=== PATIENT | male | born 1960 | race Caucasian/White ===

== ENCOUNTER 2017-12-30 17:14 | Emergency (ER) | payer MEDICARE ==
[~2017-12-30] VITALS: Ht 188 cm; Wt 106.6 kg
--- NOTE | 2017-12-30 20:02 | Diagnostic Imaging Report ---
SHOULDER LEFT COMPLETE Comparison: None Clinical history: \S\fall, rule out dislocation/fracture Findings: Motion artifact. No acute fracture or dislocation. Impression: No acute bony abnormality Signed by: Dr Janeen Bridges MD on 12/30/2017 7:59 PM
[2017-12-30 20:56] VITALS: BP 142/96
== END 2017-12-30 21:33 | disposition home or self-care (01) ==
LOC: ER 17:14
DX: M25.512 Pain in left shoulder (principal); S40.012A Contusion of left shoulder, initial encounter; W01.0XXA Fall on same level from slipping, tripping and stumbling without subsequent striking against object, initial encounter; Y92.008 Other place in unspecified non-institutional (private) residence as the place of occurrence of the external cause
CPT/HCPCS: 99283

== ENCOUNTER → 2018-10-10 | Outpatient (CLI) | payer MEDICARE ==
[~2018-10-10] MED LIST: IOPAMIDOL 370 MG/ML 200 ML INFUS..BTL INJ ONE; SODIUM CHLORIDE 0.9% 250ML 250 ML ONE
--- NOTE | 2018-10-10 12:11 | Diagnostic Imaging Report ---
EXAMINATION: CT of the abdomen and pelvis with and without contrast. TECHNIQUE: Spiral CT images of the abdomen and pelvis were performed from the lung bases to the lesser trochanters before and after the intravenous administration of 100 cc Isovue-370. Imaging was performed in prone position per hematuria protocol. Coronal and sagittal reformatted images were obtained. COMPARISON: None. CLINICAL HISTORY:Asymptomatic hematuria DISCUSSION: ABDOMEN/PELVIS: LOWER THORAX:Mild subsegmental atelectasis in the dependent lingula and right middle lobe. Bandlike atelectasis in the right lower lobe and left lower lobe. Ectasia of the ascending thoracic aorta measuring 4.3 cm. HEPATOBILIARY: No focal hepatic lesions. No intra-or extrahepatic biliary ductal dilation. The gallbladder is normal. SPLEEN: No splenomegaly. PANCREAS: Coarse calcifications in the pancreatic tail. Also within the pancreatic tail there are multiple low-attenuation lesions. The 2 largest measure 2 cm and 1.6 cm in diameter as seen on series 6 image 81, and have internal attenuation less than 20 Hounsfield units. Additional more superior lesions are too small to further characterize. The proximal pancreas is unremarkable. ADRENALS: No adrenal nodules. KIDNEYS/URETERS: Precontrast images show no renal, ureteral, or bladder calculi. Excretory phase images show scattered subcentimeter hypoattenuating foci within both kidneys, too small to further characterize but likely to represent cysts. No filling defects are identified within the upper collecting systems, ureters, or partially distended urinary bladder. PELVIC ORGANS/BLADDER: Urinary bladder as above. Prostate and seminal vesicles appear normal. PERITONEUM/RETROPERITONEUM: No ascites or pneumoperitoneum. LYMPH NODES: No pelvic sidewall, retroperitoneal, or mesenteric lymphadenopathy. VESSELS: Evaluation is limited secondary to phase of scan. The abdominal aorta is nonaneurysmal. Portal vein, splenic vein, and central superior mesenteric vein are patent. GI TRACT: The large bowel shows no evidence of distention or wall thickening. There are diverticula scattered along the descending and sigmoid colon, without wall thickening or adjacent inflammatory change. The transverse colon is largely collapsed and poorly evaluated. The appendix is not definitively identified. No right lower quadrant inflammation. The distal stomach is collapsed. No small bowel dilatation to suggest obstruction. BONES AND SOFT TISSUE: No osseous destructive lesions. Degenerative disc changes and facet arthropathy of the lumbar spine. No soft tissue abnormalities. IMPRESSION: No acute intra-abdominal or pelvic CT abnormalities. No findings to explain the reported history of hematuria. Sequela of chronic pancreatitis involving the pancreatic tail. Multiple low-attenuation lesions may reflect inflammatory pseudocysts. However, the differential diagnosis includes side branch intraductal papillary mucinous neoplasia (IPMN). Further evaluation with MRCP is suggested. Ascending thoracic aortic ectasia (4.2 cm) Large bowel diverticulosis without findings of diverticulitis. Signed by: Dr. Tony Mccartney M.D. on 10/10/2018 12:07 PM
== END ==
LOC: CT 09:33
PROVIDERS: ATTEND Urology
DX: R31.21 Asymptomatic microscopic hematuria (principal)
CPT/HCPCS: 74178; J7050; Q9967

== ENCOUNTER → 2018-10-26 | Day surgery (SDC) | payer MEDICARE ==
[~2018-10-26] MED LIST changes: +B&O 60MG R/S 60 MG SUPP PR ONE; +CEFTRIAXONE SOD 1 GM/NS 50 ML 50 ML IV ONE; +CITALOPRAM HBR20 MG PO; +DEXAMETHASONE SOD PHOS INJ 4 MG/ML VIAL ONE; +DIVALPROEX SOD500 MG PO; +DOXAZOSIN MESYLA2 MG PO; +IOPAMIDOL 300MG/ML 50ML INFUS..BTL IV ONE; -IOPAMIDOL 370 MG/ML 200 ML INFUS..BTL INJ ONE; +LIDOCAINE HCL 2% LOCAL INJ 5 ML SDV VIAL INJ ONE; +ONDANSETRON HCL INJ 2MG/ML 2ML 2 MG/ML VIAL ONE; +PROPOFOL IV EMULSION 10 MG/ML 20 ML VIAL ONE; +RISPERIDONE1 MG; -SODIUM CHLORIDE 0.9% 250ML 250 ML ONE; +TRAZODONE HCL50 MG PO
[2018-10-26 11:25] VITALS: BP 134/70
--- OUTSIDE RECORDS SUMMARY | 2018-10-28 12:12 | XMS REPORT ---
Author [facility] Address Unknown Phone Unavailable Care Team Providers Care Travel Attendants Name Role Phone JADYN BELTRAN Unavailable Unavailable [employer] LISA Unavailable Unavailable Problems This patient has no known problems. Allergies, Adverse Reactions, Alerts This patient has no known allergies or adverse reactions. Medications This patient has no known medications. Encounters Start Date/Time End Date/Time Encounter Type Admission Type Attending [facility] Care Facility Care Department Encounter ID 2018-10-30 00:00:00 2018-10-30 00:00:00 Outpatient [facility] [id number] 2018-08-07 00:00:00 2018-08-07 00:00:00 Outpatient [facility] [id number] 2018-07-31 15:17:20 2018-07-31 15:17:20 Outpatient [facility] [id number] 2018-05-15 13:16:32 2018-05-15 13:16:32 Outpatient [facility] [id number] 2018-02-13 12:35:51 2018-02-13 12:35:51 Outpatient [facility] [id number] 2018-01-02 09:17:14 2018-01-02 09:17:14 Outpatient [facility] [id number] 2017-12-05 13:22:35 2017-12-05 13:22:35 Outpatient [facility] [id number] 2017-09-12 12:22:56 2017-09-12 12:22:56 Outpatient [facility] [id number] 2017-06-20 12:48:58 2017-06-20 12:48:58 Outpatient [facility] [id number] 2017-03-28 12:40:26 2017-03-28 12:40:26 Outpatient [facility] [id number] 2017-01-03 13:03:33 2017-01-03 13:03:33 Outpatient [facility] [id number] 2017-01-03 11:11:45 2017-01-03 11:11:45 Outpatient [facility] [id number] 2016-09-27 13:53:44 2016-09-27 13:53:44 Outpatient [facility] [id number] Results Test Description Test Time Test Comments Text Results Atomic Results Result Comments CT ABDOMEN/PELVIS WOW 2018-10-10 11:54:00 [facility] [address] [address] Patient Name: LUCAS POTTER MR #: [id number] : 1960 Age/Sex: 57/M Req #: [id number] Adm Physician: Ordered by: JADYN BELTRAN MD Report #: [id number] Location: CT Room/Bed: Procedure: [id number] CT/CT ABDOMEN/PELVIS WOW Exam Date: 10/10/18 Exam Time: 1037 REPORT STATUS: Signed EXAMINATION: CT of the abdomen and pelvis with and without contrast. TECHNIQUE: Spiral CT images of the abdomen and pelvis were performed from the lung bases to the lesser trochanters before and after the intravenous administration of 100 cc Isovue-370. Imaging was performed in prone position per hematuria protocol. Coronal and sagittal reformatted images were obtained. COMPARISON: None. CLINICAL HISTORY:Asymptomatic hematuria DISCUSSION: ABDOMEN/PELVIS: LOWER THORAX:Mild subsegmental atelectasis in the dependent lingula and right middle lobe. Bandlike atelectasis in the right lower lobe and left lower lobe. Ectasia of the ascending thoracic aorta measuring 4.3 cm. HEPATOBILIARY: No focal hepatic lesions. No intra-or extrahepatic biliary ductal dilation. The gallbladder is normal. SPLEEN: No splenomegaly. PANCREAS: Coarse calcifications in the pancreatic tail. Also within the pancreatic tail there are multiple low-attenuation lesions. The 2 largest measure 2 cm and 1.6 cm in diameter as seen on series 6 image 81, and have internal attenuation less than 20 Hounsfield units. Additional more superior lesions are too small to further characterize. The proximal pancreas is unremarkable. ADRENALS: No adrenal nodules. KIDNEYS/URETERS: Precontrast images show no renal, ureteral, or bladder calculi. Excretory phase images show scattered subcentimeter hypoattenuating foci within both kidneys, too small to further characterize but likely to represent cysts. No filling defects are identified within the upper collecting systems, ureters, or partially distended urinary bladder. PELVIC ORGANS/BLADDER: Urinary bladder as above. Prostate and seminal vesicles appear normal. PERITONEUM/RETROPERITONEUM: No ascites or pneumoperitoneum. LYMPH NODES: No pelvic sidewall, retroperitoneal, or mesenteric lymphadenopathy. VESSELS: Evaluation is limited secondary to phase of scan. The abdominal aorta is nonaneurysmal. Portal vein, splenic vein, and central superior mesenteric vein are patent. GI TRACT: The large bowel shows no evidence of distention or wall thickening. There are diverticula scattered along the descending and sigmoid colon, without wall thickening or adjacent inflammatory change. The transverse colon is largely collapsed and poorly evaluated. The appendix is not definitively identified. No right lower quadrant inflammation. The distal stomach is collapsed. No small bowel dilatation to suggest obstruction. BONES AND SOFT TISSUE: No osseous destructive lesions. Degenerative disc changes and facet arthropathy of the lumbar spine. No soft tissue abnormalities. IMPRESSION: No acute intra-abdominal or pelvic CT abnormalities. No findings to explain the reported history of hematuria. Sequela of chronic pancreatitis involving the pancreatic tail. Multiple low-attenuation lesions may reflect inflammatory pseudocysts. However, the differential diagnosis includes side branch intradu ctal papillary mucinous neoplasia (IPMN). Further evaluation with MRCP is suggested. Ascending thoracic aortic ectasia (4.2 cm) Large bowel diverticulosis without findings of diverticulitis. Signed by: Dr. Nathalia Chowdary M.D. on 10/10/2018 12:07 PM Dictated By: NATHALIA CHOWDARY MD [id number] Transcribed By: FRANCISCO on 10/10/18 1205 COPY TO: JADYN BELTRAN MD SHOULDER LEFT COMPLETE 2017-12-30 19:24:[address] [address] Patient Name: LUCAS POTTER MR #: [id number] : 1960 Age/Sex: 57/M Req #: [id number] [facility] Physician: Ordered by: BERNARDO EDEN NP Report #: [id number] Location: Room/Bed: Procedure: [id number] DX/SHOULDER LEFT COMPLETE Exam Date: 12/30/17 Exam Time: 1904 REPORT STATUS: Signed SHOULDER LEFT COMPLETE Comparison: None Clinical history: S fall, rule out dislocation/fracture Findings: Motion artifact. No acute fracture or dislocation. Impression: No acute bony abnormality Signed by: Dr Madi Bridges MD on 12/30/2017 7:59 PM Dictated By: MADI BRIDGES MD 57 Transcribed By: FRANCISCO on 12/30/171958 COPY TO: BERNARDO EDEN NP
--- NOTE | 2018-12-16 00:52 | Operative Report ---
DATE OF PROCEDURE: 10/26/2018 SURGEON: Lazarus Bryson MD PREOPERATIVE DIAGNOSIS: Microhematuria. POSTOPERATIVE DIAGNOSIS: Microhematuria. OPERATION PERFORMED: 1. Cystourethroscopy with bilateral ureteral catheterization and retrograde ureteropyelography. 2. Interpretation of retrograde ureteropyelography. 3. Supervision of fluoroscopy, no radiologist present. ANESTHESIA: General. COMPLICATIONS: None. CLINICAL SUMMARY: Tammie Frankel is a 58-year-old man with microhematuria. He was brought for the above procedures. He is aware of the risks of bleeding, infection, injury to adjacent structures, need for additional procedures, and elected to proceed. OPERATIVE PROCEDURE IN DETAIL: Informed consent was verified. Tammie Frankel was properly identified, taken to the operating room, placed on the cystoscopy table in supine position. Anesthesia was uneventfully begun. The patient was then carefully and gently repositioned in the dorsal lithotomy position with all pressure points well padded. His genitalia were prepared and draped in usual sterile fashion. A 22.5-Martiniquais cystoscope sheath with a visual obturator in place was atraumatically inserted into the patient's urethra and it was guided down the unremarkable distal urethra through a wide caliber, not clinically significant nonobstructing bulbar urethral disease. We entered through the patient's normal sphincteric region. We went through the prostate bed, which was significant for very early BPH. We entered the patient's bladder and the bladder was drained. Panendoscopy revealed no suspicious mucosal lesions, no tumors, no stones, and no diverticula. Mild trabeculations were noted. An 8-Martiniquais catheter was used to cannulate each ureter and retrograde ureteropyelograms were performed. Interpretation of retrograde ureteropyelography contrast was instilled in retrograde fashion bilaterally. There were no tumors, no stones, and no diverticula. Unobstructed drainage was observed bilaterally fluoroscopically. The patient's bladder was drained. Cystoscope was withdrawn. A belladonna and opium suppository were placed revealing a 25 g prostate, that is smooth, nonfluctuant without any nodules. The patient was then uneventfully reversed from anesthesia and taken to recovery room in stable condition. Exclusive postop instructions were given. We will follow the patient up in the office and of course on long-term basis. Lazarus MD JERROD Bryson/NIR /[id number] cc: Ramon Joiner MD
== END | disposition home or self-care (01) ==
LOC: OR 05:15
PROVIDERS: ATTEND Urology
DX: N39.0 Urinary tract infection, site not specified (principal); N32.89 Other specified disorders of bladder; N40.0 Benign prostatic hyperplasia without lower urinary tract symptoms; N40.1 Benign prostatic hyperplasia with lower urinary tract symptoms; R39.14 Feeling of incomplete bladder emptying; R35.1 Nocturia; N52.9 Male erectile dysfunction, unspecified; R56.9 Unspecified convulsions; D64.9 Anemia, unspecified; F31.9 Bipolar disorder, unspecified; Z01.810 Encounter for preprocedural cardiovascular examination; Z86.19 Personal history of other infectious and parasitic diseases
CPT/HCPCS: 52005; 74420; 93005; C1758; J0696; J1100; J2001; J2405; J2704; Q9967